=== PATIENT | male | born 1935 | race Caucasian/White ===

== ENCOUNTER 2018-07-19 14:10 | Inpatient (IN) | payer MEDICARE ==
[2018-07-19] MEDS ORDERED: [UNRECOGNIZED DRUG - OTHER] (14:27)
[2018-07-19] MEDS ORDERED: GAVISCON LIQUI355 ML PO (14:27)
[2018-07-19] MEDS ORDERED: GLUCOTROL 5 MG T5 MG PO (14:28)
[2018-07-19] MEDS ORDERED: LISINOPRIL5 MG PO (14:28)
[2018-07-19 15:00] VITALS: BP 156/80
[2018-07-19 16:00] VITALS: BP 160/77
[2018-07-19 16:45] VITALS: BP 157/83
[2018-07-19 17:02] LABS: ANION GAP 20.4 mmol/L (8-16); CALCIUM 8.8 mg/dL (8.5-10.1); CARBON DIOXIDE 17.3 mmol/L (21.0-32.0); CREATININE - SERUM 6.4 mg/dL (0.6-1.3); MAGNESIUM - SERUM 2.5 mg/dL (1.8-2.4); POTASSIUM - SERUM 5.7 mmol/L (3.5-5.1)
[2018-07-19 17:15] LABS: APPEARANCE HAZY (CLEAR); BILIRUBIN NEGATIVE (NEGATIVE); COLOR STRAW (YELLOW); GLUCOSE NEGATIVE (NEGATIVE); KETONE NEGATIVE (NEGATIVE); NITRITE NEGATIVE (NEGATIVE); PROTEIN TRACE mg/dL (NEGATIVE); UROBILINOGEN NORMAL (NORMAL)
[2018-07-19 17:16] LABS: BACTERIA FEW /hpf (NONE SEEN); WHITE CELLS - URINE >50 /hpf (0-5)
--- NOTE | 2018-07-19 18:40 | NUR ---
THE PATIENT HAD CALCIUM CHLORIDE, NS, AND D5W WITH SODIUM BICARB INFUSING ON TRANSFER TO INPATIENT BED, PLEASE SEE EMAR FOR INITIATION TIME.
[2018-07-20 00:12] VITALS: BP 157/77; BMI 27.0
[2018-07-20 04:00] VITALS: BP 119/67
[2018-07-20 05:34] LABS: BASOPHILS 0.1 % (0-2); EOSINOPHILS 0.1 % (0-7); HEMOGLOBIN 9.4 g/dL (13.5-17.5); IMMATURE GRANULOCYTES 0.3 % (0-5); MCH 27.4 pg (26.0-34.0); MCHC 32.4 g/dL (31.0-37.0); MCV 84.5 fL (80.0-100.0); MEAN PLATELET VOLUME 9.6 fL (7.4-10.4); MONOCYTES 8.8 % (2-11); NEUTROPHILS 83.7 % (40-80); PLATELET COUNT 236 10x3/uL (130-400); RBC 3.43 10x6/uL (4.20-6.10); RDW 16.9 % (11.5-14.5); WBC 12.8 10x3/uL (4.8-10.8)
[2018-07-20 05:48] LABS: ALBUMIN 2.6 g/dL (3.4-5.0); ANION GAP 19.8 mmol/L (8-16); BILIRUBIN - TOTAL 0.26 mg/dL (0.2-1.3); CARBON DIOXIDE 17.3 mmol/L (21.0-32.0); CREATININE - SERUM 7.1 mg/dL (0.6-1.3); MAGNESIUM - SERUM 2.5 mg/dL (1.8-2.4); PROTEIN - SERUM 8.3 g/dL (6.4-8.2)
[2018-07-20 05:59] LABS: POTASSIUM - SERUM 6.1 mmol/L (3.5-5.1)
[2018-07-20 08:21] LABS: ANION GAP 17.8 mmol/L (8-16); CALCIUM 8.7 mg/dL (8.5-10.1); CARBON DIOXIDE 19.7 mmol/L (21.0-32.0); CREATININE - SERUM 7.4 mg/dL (0.6-1.3)
[2018-07-20 08:26] LABS: POTASSIUM - SERUM 6.5 mmol/L (3.5-5.1)
[2018-07-20 09:20] VITALS: BP 118/73
[2018-07-20 12:02] VITALS: BMI 27.0
[2018-07-20 14:37] LABS: ANION GAP 18.7 mmol/L (8-16); CALCIUM 8.6 mg/dL (8.5-10.1); POTASSIUM - SERUM 5.7 mmol/L (3.5-5.1)
--- NOTE | 2018-07-20 14:38 | NUR ---
PATIENT ARRIVED VIA STRETCHER TO THE FLOOR FROM RECOVERY. VITALS STABLE 270 MLS OF PINK TINGED URINE NOTED IN THE SALAZAR BAG. NO COMPLAINTS OF PAIN AT THIS TIME. BED IN LOW POSITION CALL LIGHT IN REACH AND NO OTHER NEEDS AT THIS TIME NOTED
[2018-07-20 16:00] VITALS: BP 115/72
[2018-07-20 16:32] LABS: ANION GAP 15.9 mmol/L (8-16); CALCIUM 8.7 mg/dL (8.5-10.1); CARBON DIOXIDE 20.6 mmol/L (21.0-32.0); CREATININE - SERUM 6.8 mg/dL (0.6-1.3); POTASSIUM - SERUM 5.5 mmol/L (3.5-5.1)
[2018-07-20 19:51] LABS: ANION GAP 12.7 mmol/L (8-16); CALCIUM 8.4 mg/dL (8.5-10.1); CARBON DIOXIDE 22.2 mmol/L (21.0-32.0); CREATININE - SERUM 5.7 mg/dL (0.6-1.3); POTASSIUM - SERUM 4.9 mmol/L (3.5-5.1)
[2018-07-20 20:00] VITALS: BP 129/58
[2018-07-21] VITALS: BP 114/56
[2018-07-21 03:57] LABS: BASOPHILS 0 % (0-2); EOSINOPHILS 2.1 % (0-7); HEMOGLOBIN 8.2 g/dL (13.5-17.5); IMMATURE GRANULOCYTES 0.4 % (0-5); LYMPHOCYTES 11.1 % (15-50); MCH 27.6 pg (26.0-34.0); MCHC 32.8 g/dL (31.0-37.0); MCV 84.2 fL (80.0-100.0); MEAN PLATELET VOLUME 8.8 fL (7.4-10.4); MONOCYTES 11.1 % (2-11); NEUTROPHILS 75.3 % (40-80); RBC 2.97 10x6/uL (4.20-6.10)
[2018-07-21 03:58] LABS: PLATELET COUNT 164 10x3/uL (130-400); WBC 7.5 10x3/uL (4.8-10.8)
[2018-07-21 04:00] VITALS: BP 134/65
[2018-07-21 04:12] LABS: ALBUMIN 2.3 g/dL (3.4-5.0); ANION GAP 14.7 mmol/L (8-16); BILIRUBIN - TOTAL 0.21 mg/dL (0.2-1.3); CALCIUM 8.3 mg/dL (8.5-10.1); CARBON DIOXIDE 22.9 mmol/L (21.0-32.0); CREATININE - SERUM 4.7 mg/dL (0.6-1.3); MAGNESIUM - SERUM 1.9 mg/dL (1.8-2.4); POTASSIUM - SERUM 4.6 mmol/L (3.5-5.1); PROTEIN - SERUM 7.5 g/dL (6.4-8.2)
--- NOTE | 2018-07-21 07:39 | NUR ---
AWAKE AND ALERT. ORIENTED X3. NO C/O AT THIS TIME. AT BEDSIDE. LUNGS ARE CLEAR BILATERALLY, NO COUGH NOTED. SKIN IS INTACT WITHOUT REDNESS. IV TO RIGHT FOREARM IS PATENT WITHOUT REDNESS AT INSERTION SITE. SALAZAR PATENT WITH CLEAR YELLOW URINE. DENIES NEEDS.
[2018-07-21 08:00] VITALS: BP 125/55
--- NOTE | 2018-07-21 10:00 | NUR ---
UP TO BR WITH MIN/SBA TO SHOWER. LINENS CHANGED PER STAFF. AT BEDSIDE. DENIES NEEDS.
[2018-07-21 12:30] VITALS: BP 126/60
--- NOTE | 2018-07-21 12:30 | NUR ---
LUNCH SERVED IN ROOM. DENIES NEEDS. AT BEDSIDE. DENIES NEEDS.
--- NOTE | 2018-07-21 15:34 | NUR ---
UP TO BR PER SELF. NO CHANGES NOTED.
[2018-07-21 16:13] VITALS: BP 116/62; BP 136/77
--- NOTE | 2018-07-21 16:40 | MORECARE ---
CASE MANAGEMENT DISCHARGE SUMMARY PATIENT: KEN FELDER UNIT: [id number] ADM DATE: 07/19/18 AGE: 83 : 37 SEX: M ROOM/BED: D.2203 AUTHOR: IESHA,DOC PHYSICIAN: REFERRING PHYSICIAN: LAYNE CALI MD DATE OF SERVICE: 07/21/18 Discharge Plan Patient Name: KEN FELDER Facility: [facility]:[place] : 1935 Planned Disposition: Home Anticipated Discharge Date: Discharge Date: Expected LOS: Initial Reviewer: [email or web address] Initial Review Date: 07/19/2018 Generated: 07/21/18 5:40 pm Comments DCP- Discharge Planning Updated by [email or web address]: Brandee Hood on 07/21/18 3:[address] Patient Name: KEN FELDER Admission Status: ER Accout number: [id number] Admission Date: 07-19-2018 : 1935 Admission Diagnosis: Attending: LAYNE STEINER Current LOS: 2 Anticipated DC Date: Planned Disposition: Home Primary Insurance: MEDICARE A & B Discharge Planning Comments: CM met with patient to complete initial dc planning assessment. CM educated patient on the CM role and verbal consent given by patient to complete assessment. Patient lives at home with his where he is independent with his care at home. At discharge patient plans to return home and feels this is a safe discharge. His niece will be his courtesy car driver home. CM discussed availability of home health, rehab services, and medical equipment. Patient denied known discharge needs at this time. Patient has a cane at home. CM will continue to follow and will assist as needed with dc plans/needs. Hand Tube Bender: Brandee Hood DCPIA - Discharge Planning Initial Assessment Updated by [email or web address]: Branede Hood on 07/21/18 4:36 pm * Is the patient Alert and Oriented? Yes * How many steps to enter\exit or inside your home? * PCP DR GASTELUM IN [place] * Pharmacy [facility] * Preadmission Environment Home with Family * ADLs Independent * Equipment Cane * List name and contact numbers for known caregivers / representatives who currently or will assist patient after discharge: LEE ANN () [phone] * Verbal permission to speak to the caregivers and representatives has been obtained from the patient. N/A * Community resources currently utilized None * Additional services required to return to the preadmission environment? No * Can the patient safely return to the preadmission environment? Yes * Has this patient been hospitalized within the prior 30 days at any hospital? No Coverage Notice Reviewer: [email or web address] Neha Hood Notice Issued Date-Time: 07/21/2018 16:30 Notice Type: IM Discharge Notice Notice Delivered To: Patient Relationship to Patient: Loss Prevention Investigator Name: Delivery Method: HAND - Hand Delivered Guerita Days: Prior Verbal Notification: Recipient Understood Notice: Yes Recipient Signature: Yes Med Rec Note Co-signed by Attending: Coverage Notice Comment: Patient Name: KEN FELDER Page [phone] at 1640 All edits/amendments must be made on the electronic document DICTATION DATE: 07/21/18 1640 HOUSEKEEPING DIRECTOR: PRIMO 07/21/18 1640 RPT#: [id number] DC DATE: STATUS: ADM IN [facility] [address] [place] [address] END OF REPORT
--- NOTE | 2018-07-21 16:48 | MORECARE ---
CASE MANAGEMENT DISCHARGE SUMMARY PATIENT: KEN FELDER UNIT: [id number] ADM DATE: 07/19/18 AGE: 83 : 37 SEX: M ROOM/BED: D.2203 AUTHOR: IESHA,DOC PHYSICIAN: REFERRING PHYSICIAN: LAYNE CALI MD DATE OF SERVICE: 07/21/18 Discharge Plan Patient Name: KEN FELDER Facility: [facility]:[place] : 1935 Planned Disposition: Home Anticipated Discharge Date: Discharge Date: Expected LOS: Initial Reviewer: [email or web address] Initial Review Date: 07/19/2018 Generated: 07/21/18 5:48 pm Comments DCP- Discharge Planning Updated by [email or web address]: Brandee Hood on 07/21/18 3:[address] imm served and explained DCP- Discharge Planning Updated by [email or web address]: Brandee Hood on 07/21/18 3:[address] Patient Name: KEN FELDER Admission Status: ER Accout number: [id number] Admission Date: 07-19-2018 : 1935 Admission Diagnosis: Attending: LAYNE STEINER Current LOS: 2 Anticipated DC Date: Planned Disposition: Home Primary Insurance: MEDICARE A & B Discharge Planning Comments: CM met with patient to complete initial dc planning assessment. CM educated patient on the CM role and verbal consent given by patient to complete assessment. Patient lives at home with his where he is independent with his care at home. At discharge patient plans to return home and feels this is a safe discharge. His niece will be his waste collection driver home. CM discussed availability of home health, rehab services, and medical equipment. Patient denied known discharge needs at this time. Patient has a cane at home. CM will continue to follow and will assist as needed with dc plans/needs. Account Executive Software Sales: Brandee Hood DCPIA - Discharge Planning Initial Assessment Updated by [email or web address]: Brandee Hood on 07/21/18 4:36 pm * Is the patient Alert and Oriented? Yes * How many steps to enter\exit or inside your home? * PCP DR GASTELUM IN [place] * Pharmacy [facility] * Preadmission Environment Home with Family * ADLs Independent * Equipment Cane * List name and contact numbers for known caregivers / representatives who currently or will assist patient after discharge: LEE ANN () [phone] * Verbal permission to speak to the caregivers and representatives has been obtained from the patient. N/A * Community resources currently utilized None * Additional services required to return to the preadmission environment? No * Can the patient safely return to the preadmission environment? Yes * Has this patient been hospitalized within the prior 30 days at any hospital? No Coverage Notice Reviewer: [id number] Neha Hood Notice Issued Date-Time: 07/21/2018 16:30 Notice Type: IM Discharge Notice Notice Delivered To: Patient Relationship to Patient: Automobile Bumper Straightener Name: Delivery Method: HAND - Hand Delivered Guerita Days: Prior Verbal Notification: Recipient Understood Notice: Yes Recipient Signature: Yes Med Rec Note Co-signed by Attending: Coverage Notice Comment: Last DP export: 07/21/18 3:40 pm Patient Name: KEN FELDER Page [phone] at 1648 All edits/amendments must be made on the electronic document DICTATION DATE: 07/21/181647 WEBSPHERE PROCESS SERVER DEVELOPER: PRIMO 07/21/181647 RPT#: [id number] DC DATE: STATUS: ADM IN [facility] [address] [place] [address] END OF REPORT
--- NOTE | 2018-07-21 18:17 | NUR ---
ATE ABOUT HALF OF SUPPER. FINISHED MEAL. DENIES NEEDS. NO CHANGES NOTED.
[2018-07-21 19:50] VITALS: BP 106/51
[2018-07-22] VITALS: BP 136/61
--- NOTE | 2018-07-22 02:21 | NUR ---
PATIENT AND SLEEPING. NO NEEDS AT THIS TIME. WCTM
[2018-07-22 04:00] VITALS: BP 128/63
[2018-07-22 05:00] LABS: BASOPHILS 0.1 % (0-2); EOSINOPHILS 2.9 % (0-7); HEMATOCRIT 25.5 % (42.0-54.0); HEMOGLOBIN 8.3 g/dL (13.5-17.5); IMMATURE GRANULOCYTES 0.1 % (0-5); LYMPHOCYTES 12.6 % (15-50); MCH 27.5 pg (26.0-34.0); MCHC 32.5 g/dL (31.0-37.0); MCV 84.4 fL (80.0-100.0); MEAN PLATELET VOLUME 9.3 fL (7.4-10.4); MONOCYTES 12.3 % (2-11); PLATELET COUNT 170 10x3/uL (130-400); RBC 3.02 10x6/uL (4.20-6.10); RDW 16.6 % (11.5-14.5); WBC 7.1 10x3/uL (4.8-10.8)
[2018-07-22 05:14] LABS: ALBUMIN 2.2 g/dL (3.4-5.0); ANION GAP 12.4 mmol/L (8-16); BILIRUBIN - TOTAL 0.21 mg/dL (0.2-1.3); CARBON DIOXIDE 25.5 mmol/L (21.0-32.0); MAGNESIUM - SERUM 1.6 mg/dL (1.8-2.4); PROTEIN - SERUM 7.5 g/dL (6.4-8.2)
[2018-07-22 05:17] LABS: CREATININE - SERUM 2.4 mg/dL (0.6-1.3); POTASSIUM - SERUM 3.9 mmol/L (3.5-5.1)
--- NOTE | 2018-07-22 07:05 | NUR ---
PATIENT RECIEVED RESTING IN BED. ADMITTED FOR BLADDER MASS, DEHYDRATION, AND PEÑA. SALAZAR PATENT AND DRAINING CLEAR YELLOW URINE. PATIENT DENIES ANY PAIN OR NEEDS. CL IN REACH
[2018-07-22 08:24] VITALS: BP 114/63
[2018-07-22 12:31] VITALS: BP 134/68
[2018-07-22 17:49] VITALS: BP 128/69
--- NOTE | 2018-07-22 19:30 | NUR ---
ALERT AND ORIENTED. AT BEDSIDE. SALAZAR CATHETER WITH CLEAR YELLOW URINE DRAINING. REQUESTS BLANKET PROVIDED TO PATIENT. DENIES PAIN AT THIS TIME.
[2018-07-22 20:00] VITALS: BP 131/71
[2018-07-23] VITALS: BP 105/51
--- NOTE | 2018-07-23 02:47 | NUR ---
I have reviewed this patient and I concur with the Shift Assessment completed by the Licensed Practical Nurse today this shift.
[2018-07-23 05:26] LABS: BASOPHILS 0 % (0-2); EOSINOPHILS 3.7 % (0-7); HEMATOCRIT 27.5 % (42.0-54.0); HEMOGLOBIN 8.9 g/dL (13.5-17.5); IMMATURE GRANULOCYTES 0.6 % (0-5); LYMPHOCYTES 12.8 % (15-50); MCH 27.5 pg (26.0-34.0); MCHC 32.4 g/dL (31.0-37.0); MCV 84.9 fL (80.0-100.0); MONOCYTES 11.1 % (2-11); NEUTROPHILS 71.8 % (40-80); PLATELET COUNT 171 10x3/uL (130-400); RBC 3.24 10x6/uL (4.20-6.10); RDW 16.3 % (11.5-14.5); WBC 8.4 10x3/uL (4.8-10.8)
[2018-07-23 05:56] LABS: ALBUMIN 2.3 g/dL (3.4-5.0); ANION GAP 7.3 mmol/L (8-16); BILIRUBIN - TOTAL 0.22 mg/dL (0.2-1.3); CALCIUM 8.3 mg/dL (8.5-10.1); CARBON DIOXIDE 30.4 mmol/L (21.0-32.0); CREATININE - SERUM 1.9 mg/dL (0.6-1.3); MAGNESIUM - SERUM 1.4 mg/dL (1.8-2.4); POTASSIUM - SERUM 3.7 mmol/L (3.5-5.1); PROTEIN - SERUM 7.5 g/dL (6.4-8.2)
--- NOTE | 2018-07-23 07:20 | NUR ---
PT RESTING IN BED, EYES OPEN. NO C/O PAIN. NO S/S OF ACUTE DISTRESS NOTED. ALERT AND ORIENTED. SALAZAR PRESENT. MAGNESIUM 1.4 THIS AM. PT ON TELEMETRY SR 100 WITH T-WAVE ELEVATED. IV TO RIGHT FOREARM, SODIUM BICARB INFUSING @ 100ML/HR. D5 INFUSING @ 75ML/HR. SITE PATENT WITHOUT REDNESS OR SWELLING. PT DENIES ANYTHING FURTHER AT THIS TIME. CALL LIGHT IN REACH. WILL CONTINUE TO MONITOR.
[2018-07-23 09:22] VITALS: BP 144/70
--- NOTE | 2018-07-23 10:53 | MORECARE ---
CASE MANAGEMENT DISCHARGE SUMMARY PATIENT: KEN SWAN UNIT: [id number] ADM DATE: 07/19/18 AGE: 83 : 37 SEX: M ROOM/BED: D.2203 AUTHOR: IESHA,DOC PHYSICIAN: REFERRING PHYSICIAN: LAYNE CALI MD DATE OF SERVICE: 07/23/18 Discharge Plan Patient Name: KEN SWAN Facility: [facility]:[place] : 1935 Planned Disposition: Home Anticipated Discharge Date: 07/23/18 Discharge Date: Expected LOS: 4 Initial Reviewer: [email or web address] Initial Review Date: 07/19/2018 Generated: 07/23/18 11:52 am Comments DCP- Discharge Planning Updated by [id number]: Brandee Hood on 07/21/18 3:[address] imm served and explained DCP- Discharge Planning Updated by [id number]: Brandee Hood on 07/21/18 3:[address] Patient Name: KEN SWAN Admission Status: ER Accout number: [id number] Admission Date: 07-19-2018 : 1935 Admission Diagnosis: Attending: LAYNE STEINER Current LOS: 2 Anticipated DC Date: Planned Disposition: Home Primary Insurance: MEDICARE A & B Discharge Planning Comments: CM met with patient to complete initial dc planning assessment. CM educated patient on the CM role and verbal consent given by patient to complete assessment. Patient lives at home with his where he is independent with his care at home. At discharge patient plans to return home and feels this is a safe discharge. His niece will be his local company intermodal truck driver home. CM discussed availability of home health, rehab services, and medical equipment. Patient denied known discharge needs at this time. Patient has a cane at home. CM will continue to follow and will assist as needed with dc plans/needs. Document Control Supervisor: Brandee Hood DCPIA - Discharge Planning Initial Assessment Updated by [email or web address]: Brandee Hood on 07/21/18 4:36 pm * Is the patient Alert and Oriented? Yes * How many steps to enter\exit or inside your home? * PCP DR GASTELUM IN [place] * Pharmacy [facility] * Preadmission Environment Home with Family * ADLs Independent * Equipment Cane * List name and contact numbers for known caregivers / representatives who currently or will assist patient after discharge: DIANNA () [phone] * Verbal permission to speak to the caregivers and representatives has been obtained from the patient. N/A * Community resources currently utilized None * Additional services required to return to the preadmission environment? No * Can the patient safely return to the preadmission environment? Yes * Has this patient been hospitalized within the prior 30 days at any hospital? No Coverage Notice Reviewer: [email or web address] - Brandee Hood Notice Issued Date-Time: 07/21/2018 16:30 Notice Type: IM Discharge Notice Notice Delivered To: Patient Relationship to Patient: Electrical Machinist Name: Delivery Method: HAND - Hand Delivered Guerita Days: Prior Verbal Notification: Recipient Understood Notice: Yes Recipient Signature: Yes Med Rec Note Co-signed by Attending: Coverage Notice Comment: Reviewer: [id number] - Tasha Patel Notice Issued Date-Time: 07/23/2018 10:50 Notice Type: IM Discharge Notice Notice Delivered To: Family Member Relationship to Patient: Spouse Electrical Machinist Name: Dianna Swan Delivery Method: HAND - Hand Delivered Guerita Days: Prior Verbal Notification: Recipient Understood Notice: Yes Recipient Signature: Yes Med Rec Note Co-signed by Attending: Coverage Notice Comment: DISCHARGE IMM SERVED, CM EXPLAINED TO THE PATIENT AND HIS SPOUSE, DIANNA. THEY ARE ANXIOUS FOR DISCHARGE TO HOME. SIGNATURE OBTAINED. COPY TO PATIENT AND COPY TO HARD COPY CHART. Last DP export: 07/21/18 3:48 pm Patient Name: KEN SWAN Page [phone] at 1053 All edits/amendments must be made on the electronic document DICTATION DATE: 07/23/18 105 LOGISTICS SOLUTION MANAGER: PRIMO 07/23/18 105 RPT#: [id number] DC DATE: STATUS: ADM IN [facility] [address] [place] [address] END OF REPORT
--- NOTE | 2018-07-23 11:00 | MORECARE ---
CASE MANAGEMENT DISCHARGE SUMMARY PATIENT: KEN SWAN UNIT: [id number] ADM DATE: 07/19/18 AGE: 83 : 37 SEX: M ROOM/BED: D.2203 AUTHOR: IESHA,DOC PHYSICIAN: REFERRING PHYSICIAN: LAYNE CALI MD DATE OF SERVICE: 07/23/18 Discharge Plan Patient Name: KEN SWAN Facility: [facility]:[place] : 1935 Planned Disposition: Home Anticipated Discharge Date: 07/23/18 Discharge Date: Expected LOS: 4 Initial Reviewer: [email or web address] Initial Review Date: 07/19/2018 Generated: 07/23/18 11:59 am Comments DCP- Discharge Planning Updated by [email or web address]: Brandee Hood on 07/21/18 3:[address] imm served and explained DCP- Discharge Planning Updated by [id number]: Brandee Hood on 07/21/18 3:[address] Patient Name: KEN SWAN Admission Status: ER Accout number: [id number] Admission Date: 07-19-2018 : 1935 Admission Diagnosis: Attending: LAYNE STEINER Current LOS: 2 Anticipated DC Date: Planned Disposition: Home Primary Insurance: MEDICARE A & B Discharge Planning Comments: CM met with patient to complete initial dc planning assessment. CM educated patient on the CM role and verbal consent given by patient to complete assessment. Patient lives at home with his where he is independent with his care at home. At discharge patient plans to return home and feels this is a safe discharge. His niece will be his pole truck driver home. CM discussed availability of home health, rehab services, and medical equipment. Patient denied known discharge needs at this time. Patient has a cane at home. CM will continue to follow and will assist as needed with dc plans/needs. Live Source Operator: Brandee Hood DCPIA - Discharge Planning Initial Assessment Updated by [id number]: Brandee Hood on 07/21/18 4:36 pm * Is the patient Alert and Oriented? Yes * How many steps to enter\exit or inside your home? * PCP DR GASTELUM IN [place] * Pharmacy [facility] * Preadmission Environment Home with Family * ADLs Independent * Equipment Cane * List name and contact numbers for known caregivers / representatives who currently or will assist patient after discharge: DIANNA () [phone] * Verbal permission to speak to the caregivers and representatives has been obtained from the patient. N/A * Community resources currently utilized None * Additional services required to return to the preadmission environment? No * Can the patient safely return to the preadmission environment? Yes * Has this patient been hospitalized within the prior 30 days at any hospital? No Coverage Notice Reviewer: [id number] Neha Hood Notice Issued Date-Time: 07/21/2018 16:30 Notice Type: IM Discharge Notice Notice Delivered To: Patient Relationship to Patient: Cup Trimming Machine Operator Name: Delivery Method: HAND - Hand Delivered Guerita Days: Prior Verbal Notification: Recipient Understood Notice: Yes Recipient Signature: Yes Med Rec Note Co-signed by Attending: Coverage Notice Comment: Reviewer: [id number] - Tasha Patel Notice Issued Date-Time: 07/23/2018 10:50 Notice Type: IM Discharge Notice Notice Delivered To: Family Member Relationship to Patient: Spouse Cup Trimming Machine Operator Name: Dianna Swan Delivery Method: HAND - Hand Delivered Guerita Days: Prior Verbal Notification: Recipient Understood Notice: Yes Recipient Signature: Yes Med Rec Note Co-signed by Attending: Coverage Notice Comment: DISCHARGE IMM SERVED, CM EXPLAINED TO THE PATIENT AND HIS SPOUSE, DIANNA. THEY ARE ANXIOUS FOR DISCHARGE TO HOME. SIGNATURE OBTAINED. COPY TO PATIENT AND COPY TO HARD COPY CHART. Last DP export: 07/23/18 9:53 am Patient Name: KEN SWAN Page [id number] at 1100 All edits/amendments must be made on the electronic document DICTATION DATE: 07/23/181058 HAND REAMER: DM 07/23/18 105 RPT#: [id number] DC DATE: STATUS: ADM IN [facility] [address] [place] [address] END OF REPORT
--- NOTE | 2018-07-23 12:09 | NUR ---
I have reviewed this patient and I concur with the Shift Assessment completed by the Licensed Practical Nurse today this shift.
[2018-07-23 13:48] VITALS: BP 147/74
--- NOTE | 2018-07-23 16:08 | NUR ---
PT DISCHARGED HOME VIA WHEELCHAIR ACCOMPANIED BY HOSPITAL STAFF AND FAMILY. DISCONTINUED IV, CATHETER TIP INTACT. NO C/O PAIN. NO S/S OF ACUTE DISTRESS NOTED. WENT OVER DISCHARGE INSTRUCTIONS WITH PATIENT AND SPOUSE. PATIENT AND SPOUSE ACKNOWLEDGED INSTRUCTIONS AND RETURNED DEMONSTRATION. PT DENIES ANYTHING FURTHER.
--- NOTE | 2018-07-24 08:10 | MORECARE ---
CASE MANAGEMENT DISCHARGE SUMMARY PATIENT: KEN SWAN UNIT: [id number] ADM DATE: 07/19/18 AGE: 83 : 37 SEX: M ROOM/BED: D.2203 AUTHOR: IESHA,DOC PHYSICIAN: REFERRING PHYSICIAN: LAYNE CALI MD DATE OF SERVICE: 07/24/18 Discharge Plan Patient Name: KEN SWAN Facility: [facility]:[place] : 1935 Planned Disposition: Home Anticipated Discharge Date: 07/23/18 Discharge Date: 07/23/2018 Expected LOS: 4 Initial Reviewer: [email or web address] Initial Review Date: 07/19/2018 Generated: 07/24/18 9:10 am Comments DCP- Discharge Planning Updated by [email or web address]: Brandee Hood on 07/21/18 3:[address] imm served and explained DCP- Discharge Planning Updated by [id number]: Brandee Hood on 07/21/18 3:[address] Patient Name: KEN SWAN Admission Status: ER Accout number: [id number] Admission Date: 07-19-2018 : 1935 Admission Diagnosis: Attending: LAYNE STEINER Current LOS: 2 Anticipated DC Date: Planned Disposition: Home Primary Insurance: MEDICARE A & B Discharge Planning Comments: CM met with patient to complete initial dc planning assessment. CM educated patient on the CM role and verbal consent given by patient to complete assessment. Patient lives at home with his where he is independent with his care at home. At discharge patient plans to return home and feels this is a safe discharge. His niece will be his school bus driver/custodian home. CM discussed availability of home health, rehab services, and medical equipment. Patient denied known discharge needs at this time. Patient has a cane at home. CM will continue to follow and will assist as needed with dc plans/needs. Outside Sales Associate: Brandee Hood DCPIA - Discharge Planning Initial Assessment Updated by [email or web address]: Brandee Hood on 07/21/18 4:36 pm * Is the patient Alert and Oriented? Yes * How many steps to enter\exit or inside your home? * PCP DR GASTELUM IN [place] * Pharmacy [facility] * Preadmission Environment Home with Family * ADLs Independent * Equipment Cane * List name and contact numbers for known caregivers / representatives who currently or will assist patient after discharge: DIANNA () [phone] * Verbal permission to speak to the caregivers and representatives has been obtained from the patient. N/A * Community resources currently utilized None * Additional services required to return to the preadmission environment? No * Can the patient safely return to the preadmission environment? Yes * Has this patient been hospitalized within the prior 30 days at any hospital? No Coverage Notice Reviewer: [id number] - Brandee Hood Notice Issued Date-Time: 07/21/2018 16:30 Notice Type: IM Discharge Notice Notice Delivered To: Patient Relationship to Patient: Elevator Constructor Supervisor Name: Delivery Method: HAND - Hand Delivered Guerita Days: Prior Verbal Notification: Recipient Understood Notice: Yes Recipient Signature: Yes Med Rec Note Co-signed by Attending: Coverage Notice Comment: Reviewer: [id number] - Tasha Patel Notice Issued Date-Time: 07/23/2018 10:50 Notice Type: IM Discharge Notice Notice Delivered To: Family Member Relationship to Patient: Spouse Elevator Constructor Supervisor Name: Dianna Swan Delivery Method: HAND - Hand Delivered Guerita Days: Prior Verbal Notification: Recipient Understood Notice: Yes Recipient Signature: Yes Med Rec Note Co-signed by Attending: Coverage Notice Comment: DISCHARGE IMM SERVED, CM EXPLAINED TO THE PATIENT AND HIS SPOUSE, DIANNA. THEY ARE ANXIOUS FOR DISCHARGE TO HOME. SIGNATURE OBTAINED. COPY TO PATIENT AND COPY TO HARD COPY CHART. Last DP export: 07/23/18 10:00 am Patient Name: KEN SWAN Page [phone] at 0810 All edits/amendments must be made on the electronic document DICTATION DATE: 07/24/1810 CHAIN OFFBEARER: PRIMO 07/24/18 0810 RPT#: [id number] DC DATE:07/23/18 STATUS: DIS IN [facility] [address] [place] [address] END OF REPORT
--- NOTE | 2018-07-26 08:01 | OP ---
PATIENT NAME: KEN FELDER MEDICAL RECORD: [id number] :37 LOCATION:[facility] ADMISSION DATE:07/19/18 SURGEON: CLAY SALINAS MD DATE OF OPERATION: 07/20/2018 SURGEON: Clay Salinas MD ANESTHESIA: TIVA by Dr. Dimitris Hernandez. 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 PROCEDURES: Cystoscopy, Ramos catheter placement over a guidewire. FINDINGS: Bulbar urethral perforation from Ramos balloon inflation. Obstructive BPH with bilateral lateral lobe hyperplasia and a small median lobe. Single ureteral orifices bilaterally. No bladder tumors were seen. Cloudy urine. SPECIMENS: Urine for culture. ESTIMATED BLOOD LOSS: None. CLINICAL HISTORY: This is an 83-year-old male, who was transferred from [place]. He has acute renal failure and he has hyperkalemia. His CT scan shows grossly distended bladder and an enlarged prostate. There are some what appears to me to be diverticula or trabeculations of the bladder wall. It was reported as a bladder tumor by the radiologist in [place] and he was sent here. A nurse in [place] attempted to place a Ramos catheter, but it is draining minimally and he is bleeding around the catheter. I removed the catheter and the patient's bed. The CT scan done here shows that the Ramos is not in the bladder, but they said it is somewhere in the urethra and therefore the Ramos balloon is in the urethra also. When I deflated the Ramos balloon, it had 3 mL of saline or water in it. A repeat Ramos catheter insertion attempt was unsuccessful and therefore, he is being brought to the operating room on an emergent basis to get a Ramos catheter into his bladder under direct vision. His urinalysis shows signs of a UTI. He has not had any antibiotics. We will obtain urine for culture from the scope. There was given Ancef 1 gram IV contract manager to the OR. DESCRIPTION OF PROCEDURE: The patient was given IV sedation. He was placed in the dorsal lithotomy position and prepped and draped. We used a 21-Mosotho cystoscope with 30-degree lens. Penile urethra showed no strictures. Bulbar urethra showed an area of injury in the ventral urethra. The true lumen was more anterior to this. A Sensor wire was placed into the true lumen and into the bladder. I followed the wire with the scope and got into the bladder. The prostate shows bilateral lateral lobe hyperplasia, which is obstructive. The bladder neck is a little bit elevated, but the median lobe was minimal. Looking in the bladder, there are no tumors. The cystoscope side port was opened up and urine from the bladder was obtained for culture. The scope was then removed, leaving the guidewire in place. A ione tip Ramos catheter, 16-Mosotho in size, was placed into the bladder over the wire. Once the catheter was fully in the bladder, then the balloon was inflated to 10 cc of sterile water and the Ramos was put to bag drainage. At a later date, when he has settled down and OPERATIVE REPORT [id number] KEN FELDER his renal function has normalized, he will need a UroLift procedure to relieve his obstruction. TRANSINT:[id number] Voice Confirmation ID: [id number] DOCUMENT ID: [id number] CLAY SALINAS MD at 0801 CC: [id number] DICTATION DATE: 07/20/18 1201 ETHICS OFFICER: 07/20/18 1248 DIS IN 07/23/18 [facility] [address] [place] [address]
== END 2018-07-23 16:11 | disposition home or self-care (01) | DRG 699 ==
LOC: D.ER 14:10 → D.MS 17:50 → D.EDHOLD 17:50 → D.MS 18:15
PROVIDERS: Emergency Medicine; Internal Medicine Nephrology; Urology; ADMIT Family Medicine Adult Medicine; ATTEND Family Medicine Adult Medicine
PROC: 0T9B80Z Drainage of Bladder with Drainage Device, Via Natural or Artificial Opening Endoscopic (ICD-10-PCS; principal; 2018-07-20 12:00)
DX: N32.9 Bladder disorder, unspecified (principal); N17.9 Acute kidney failure, unspecified; N39.0 Urinary tract infection, site not specified; N13.30 Unspecified hydronephrosis; N13.8 Other obstructive and reflux uropathy; N40.1 Benign prostatic hyperplasia with lower urinary tract symptoms; E87.5 Hyperkalemia; E11.65 Type 2 diabetes mellitus with hyperglycemia; I10 Essential (primary) hypertension; I25.10 Atherosclerotic heart disease of native coronary artery without angina pectoris